=== PATIENT | male | born 1985 | race Caucasian/White ===

== ENCOUNTER 2016-09-09 15:32 | Emergency (ER) | payer SELFPAY ==
[2016-09-09] MEDS ORDERED: Sodium Chloride 0.9% 10 ML Syringe FLUSH PRN ×2 (15:56→16:55)
[2016-09-09] MEDS ORDERED: Sodium Chloride 0.9% 1,000 ML IV ONE (15:56)
[2016-09-09] MEDS ORDERED: Ondansetron 4 MG/2 ML SDV IVPUSH ONE ×2 (15:56→16:25)
[2016-09-09] MEDS ORDERED: HYDROmorphone 1 MG/ML Syringe IVPUSH ONE (15:56)
--- NOTE | 2016-09-09 16:06 | EDM.PDOC ---
ED HPI GENERAL MEDICAL PROBLEM - General Chief Complaint: Abdominal Pain Stated Complaint: ABDOMINAL PAIN Time Seen by Provider: 09/09/16 15:42 Source of Information: Reports: Patient History Limitations: Reports: No Limitations - History of Present Illness INITIAL COMMENTS - FREE TEXT/NARRATIVE: 31-year-old male presents for evaluation and treatment of right lower quadrant abdominal pain. Reports that the abdominal pain began about 10 minutes prior to arrival in ER. Describes the abdominal pain as a sharp, stabbing sensation. Reports associated symptoms of nausea. Patient reports he's never had anything like this before. He denies any fevers, vomiting, dysuria, hematuria, change in urine or color or any constipation. Reports his last bowel movement was today. Patient denies any surgeries to his abdomen. Of intake was about 45 minutes to an hour prior to arrival here. Patient had 2 sandwiches. Onset: Today, Sudden Duration: Minutes: (20) Location: Reports: Abdomen Lower Abdominal Pain Score (Numeric/FACES): 9 - Related Data Allergies Allergy/AdvReac Type Severity Reaction Status Date / Time No Known Allergies Allergy Verified 09/09/16 15:42 Home Meds: Home Meds . [No Known Home Meds] 09/09/16 [History] Past Medical History - Past Health History Medical/Surgical History: Denies Medical/Surgical History Social & Family History - Tobacco Use Smoking Status *Q: Never Smoker - Caffeine Use Caffeine Use: Reports: Energy Drinks - Recreational Drug Use Recreational Drug Use: No - Living Situation & Occupation Living situation: Reports: with Significant Other ED ROS GENERAL - Review of Systems Review Of Systems: See Below Constitutional: Denies: Fever GI/Abdominal: Reports: Abdominal Pain (rLQ), Nausea. Denies: Constipation, Vomiting : Reports: No Symptoms. Denies: Dysuria, Hematuria Musculoskeletal: Denies: Back Pain ED EXAM, GI/ABD - Physical Exam Exam: See Below Exam Limited By: No Limitations General Appearance: Alert, WD/WN, Moderate Distress, Obese Throat/Mouth: Normal Inspection, Normal Voice, No Airway Compromise Respiratory/Chest: No Respiratory Distress, Lungs Clear, Normal Breath Sounds Cardiovascular: Normal Peripheral Pulses, Regular Rate, Rhythm, No Murmur GI/Abdominal: Hypoactive Bowel Sounds, Tenderness (extremely tender to palpiation to the RLQ ), Guarding, Rebound, McBurney's Sign, Psoas Sign, Obturator Sign Neurological: Alert, Oriented, Normal Cognition Psychiatric: Normal Affect, Normal Mood Skin Exam: Warm, Dry, Normal Color Course - Vital Signs Last Recorded V/S: Last Vital Signs Temp 36.4 C 09/09/16 15:39 Pulse 70 09/09/16 16:35 Resp 16 09/09/16 16:35 BP 129/76 09/09/16 16:35 Pulse Ox 94 L 09/09/16 16:35 - Orders/Labs/Meds Orders: Active Orders 24 hr Category Date Time Status Peripheral IV Care [RC] . DIRECTED Care 09/09/16 15:56 Active Peripheral IV Insertion Adult [OM.PC] Routine Oth 09/09/16 15:56 Ordered Labs: Laboratory Tests 09/09/16 09/09/16 09/09/16 Range/Units 16:03 16:03 17:35 WBC 6.27 (4.23-9.07) K/mm3 RBC 5.08 (4.63-6.08) M/mm3 Hgb 15.4 (13.7-17.5) gm/L Hct 44.6 (40.1-51.0) % MCV 87.8 (79.0-92.2) fl MCH 30.3 (25.7-32.2) pg MCHC 34.5 (32.2-35.5) g/dl RDW Std Deviation 39.5 (35.1-43.9) fL Plt Count 260 (163-337) K/mm3 MPV 9.3 L (9.4-12.3) fl Neutrophils % (Manual) 70 H (40-60) % Band Neutrophils % 0 (0-10) % Lymphocytes % (Manual) 23 (20-40) % Atypical Lymphs % 0 % Monocytes % (Manual) 4 (2-10) % Eosinophils % (Manual) 2 (0.8-7.0) % Basophils % (Manual) 1 (0.2-1.2) Platelet Estimate Adequate Plt Morphology Comment Normal RBC Morph Comment Normal Sodium 142 (136-145) mEq/L Potassium 3.8 (3.5-5.1) mEq/L Chloride 106 (98-107) mEq/L Carbon Dioxide 24 (21-32) mEq/L Anion Gap 15.8 H (5-15) BUN 13 (7-18) mg/dL Creatinine 1.3 (0.7-1.3) mg/dL Est Cr Clr Drug Dosing 103.76 mL/min Estimated GFR (MDRD) > 60 (>60) mL/min BUN/Creatinine Ratio 10.0 L (14-18) Glucose 117 H (74-106) mg/dL Calcium 9.0 (8.5-10.1) mg/dL Total Bilirubin 1.8 H (0.2-1.0) mg/dL AST 27 (15-37) U/L ALT 56 (16-63) U/L Alkaline Phosphatase 95 (46-116) U/L C-Reactive Protein < 0.2 (<1.0) mg/dL Total Protein 7.9 (6.4-8.2) g/dl Albumin 3.8 (3.4-5.0) g/dl Globulin 4.1 gm/dL Albumin/Globulin Ratio 0.9 L (1-2) Urine Color Yellow (Yellow) Urine Appearance Clear (Clear) Urine pH 7.0 (5.0-8.0) Ur Specific Moody 1.015 (1.005-1.030) Urine Protein Negative (Negative) Urine Glucose (UA) Negative (Negative) Urine Ketones Negative (Negative) Urine Occult Blood Negative (Negative) Urine Nitrite Negative (Negative) Urine Bilirubin Negative (Negative) Urine Urobilinogen 0.2 (0.2-1.0) Ur Leukocyte Esterase Negative (Negative) Urine RBC Not seen (0-5) /hpf Urine WBC Not seen (0-5) /hpf Ur Epithelial Cells Not seen (0-5) /hpf Urine Bacteria Rare (FEW) /hpf Urine Mucus Not seen (FEW) /hpf Meds: Medications Discontinued Medications Generic Name Dose Route Start Last Admin Trade Name Freq PRN Reason Stop Dose Admin Diatrizoate Meglum/Diatrizoate Sod 90 ml 09/09/16 16:55 09/09/16 17:26 Gastrografin 37% PO 09/09/16 16:56 90 ml ONETIME ONE Administration Hydromorphone HCl 1 mg 09/09/16 15:56 09/09/16 16:07 Dilaudid IVPUSH 09/09/16 15:57 1 mg ONETIME ONE Administration Sodium Chloride 1,000 mls @ 999 mls/hr 09/09/16 15:56 09/09/16 16:06 Normal Saline IV 09/09/16 16:56 999 mls/hr ONETIME ONE Administration Iopamidol 125 ml 09/09/16 16:55 09/09/16 17:26 Isovue-300 (61%) IVPUSH 09/09/16 16:56 125 ml ONETIME ONE Administration Ketorolac Tromethamine 30 mg 09/09/16 19:36 09/09/16 20:19 Toradol IVPUSH 09/09/16 19:37 Not Given ONETIME ONE Ondansetron HCl 4 mg 09/09/16 15:56 09/09/16 16:04 Zofran IVPUSH 09/09/16 15:57 4 mg ONETIME ONE Administration Ondansetron HCl 4 mg 09/09/16 16:25 09/09/16 17:11 Zofran IVPUSH 09/09/16 16:26 Not Given ONETIME ONE Sodium Chloride 10 ml 09/09/16 15:56 09/09/16 16:03 Saline Flush FLUSH 10 ml ASDIRECTED PRN Administration Keep Vein Open Sodium Chloride 10 ml 09/09/16 16:55 09/09/16 17:26 Saline Flush FLUSH 10 ml ONETIME PRN Administration IV FLUSH - Radiology Interpretation Free Text/Narrative:: CT of the abdomen and pelvis impression per Dr. Garcias: 1. normal-appearing appendix 2. low density abnormality off the upper left kidney which does not have Hounsfield unit measurements of a simple cyst. This could possibly represent a slightly hemorrhagic cyst but mason lesion cannot be excluded at this time. Ultrasound could be considered to see if this helps to further differentiate. 3. No additional abnormality is identified on Ct study of the abdomen and pelvis. CT Results Date: 09/09/16 - Re-Assessments/Exams Free Text/Narrative Re-Assessment/Exam: 09/09/16 16:26 Patient reports pain is a 2/10 to nursing staff after IV Diaudid. Reports nausea is worsening. Will give an additional 4mg IV zofran. 09/09/16 16:54 Reportedly the nausea and pain has improved. Patient is having dizziness. Will hold 2nd zofran. 09/09/16 19:35 WBC is 6.27, hgb is 15.4 and plts are 260 Sodium is 142, potassium is 3.8 and chloride is 106. Anion gap is 15.8. Glucose is 117. CRP is normal at <0.2 UA is negative for blood, nitries, leuks, glucose and ketones Patient reports continued pain. I ordered toradol for pain. Reviewed labs and imaging with the patient. Suspect constipation as the cause of his discomfort. The patient has additional questions about sleep problems. I feel he likely has sleep apnea. I will have him follow-up with family med for an ER follow-up, sleep problems and left renal cyst. Discharge instructions as documented. 09/09/16 20:38 Nursing staff went to administer toradol. Patient then declined and went home. Departure - Departure Time of Disposition: 20:01 Disposition: Home, Self-Care 01 Condition: fair Clinical Impression: Kidney cysts, Constipation - Discharge Information Instructions: Constipation, Adult Referrals: PCP,Katrin [Primary Care Provider] - Adonis Alberts [Physician] - Forms: ED Department Discharge, Return to Work/School Form Additional Instructions: [id number] Tylenol or Motrin as needed for pain relief. Follow up with family medicine the end of this week or early next week. Recommendations included ultrasound of the cyst in your left kidney to further evaluate this. I also recommend that she followup regarding her sleep issues as your may have sleep apnea require further testing for this. Recommend subha ruvalcaba or Dr. fisher. Please call [phone] schedules one of them. Recommend drinking one 300ml bottle of mag citrate tomorrow morning over one hour. This is available OTC. This will help the bowel cleanout. I recommend MiraLax that is available [id number] daily or every other day for daily maintenance. make sure your are drinking plenty of fluids. Please return to the ER if your symptoms change or worsen. - My Orders Last 24 Hours: My Active Orders 09/09/16 15:56 Peripheral IV Care [RC] . DIRECTED Peripheral IV Insertion Adult [OM.PC] Routine - Assessment/Plan Last 24 Hours: My Active Orders 09/09/16 15:56 Peripheral IV Care [RC] . DIRECTED Peripheral IV Insertion Adult [OM.PC] Routine
[2016-09-09 16:39] VITALS: BP 129/76
[2016-09-09] MEDS ORDERED: Iopamidol 612 MG/ML 150 ML Bottle IVPUSH ONE (16:55)
[2016-09-09] MEDS ORDERED: Diatrizoate Meglumine/Diatrizoate Sodium 37% 120 ML Bottle PO ONE (16:55)
--- NOTE | 2016-09-09 18:09 | CT ---
CT abdomen and pelvis Technique: Multiple axial sections were obtained from above the dome of the diaphragm inferiorly through the pubic symphysis. Intravenous and oral contrast was utilized. Delayed images were also obtained through the bladder. Comparison: No previous abdominal imaging. Findings: Visualized lung bases shows nothing acute. Liver shows no focal parenchymal abnormality. Spleen appears within normal limits. Adrenal glands show no nodule. Gallbladder shows no calcified gallstones. Low-density lesion is noted within the upper left kidney measuring 3.4 cm in greatest dimension. This does not have Hounsfield unit measurements of a simple cyst. Kidneys otherwise appear within normal limits. Pancreas is unremarkable. Aorta shows no aneurysmal dilatation. No retroperitoneal adenopathy is seen. Appendix is visualized and appears normal. No pelvic mass or adenopathy is seen. Delayed images shows contrast within the bladder. Small normal-appearing inguinal lymph nodes are seen. No free fluid or inflammatory change is seen. Impression: 1. Normal-appearing appendix. 2. Low density abnormality off the upper left kidney which does not have Hounsfield unit measurements of a simple cyst. This could possibly represent a slightly hemorrhagic cyst but solid lesion cannot be excluded at this time. Ultrasound could be considered to see if this helps to further differentiate. 3. No additional abnormality is identified on CT study of the abdomen and pelvis. Diagnostic code #9
[2016-09-09] MEDS ORDERED: Ketorolac 30 MG/ML SDV IVPUSH ONE (19:36)
== END 2016-09-09 20:12 | disposition home or self-care (01) ==
LOC: JD.ED 15:32
DX: N28.1 Cyst of kidney, acquired (principal); K59.00 Constipation, unspecified; R11.0 Nausea
CPT/HCPCS: 36415; 74177; 80053; 81001; 85025; 86140; 96361; 96374; 96375; 99284; J1170; J2405; J7040; J7050; Q9963; Q9967

== ENCOUNTER 2016-10-26 05:43 | Emergency (ER) | payer SELFPAY ==
[2016-10-26] MEDS ORDERED: Sodium Chloride 0.9% 1,000 ML IV ONE (06:33)
[2016-10-26] MEDS ORDERED: Benztropine 1 MG Tab PO STA (06:33)
[2016-10-26] MEDS ORDERED: Ondansetron 4 MG/2 ML SDV IVPUSH ONE (06:33)
[2016-10-26] MEDS ORDERED: Haloperidol Lactate 5 MG/ML SDV IM ONE (06:33)
--- NOTE | 2016-10-26 06:36 | EDM.PDOC ---
ED HPI GENERAL MEDICAL PROBLEM - General Chief Complaint: Cardiovascular Problem Stated Complaint: VOMIOTING RAPID HEART BEAT Time Seen by Provider: 10/26/16 05:53 Source of Information: Reports: Patient, RN Notes Reviewed History Limitations: Reports: No Limitations - History of Present Illness INITIAL COMMENTS - FREE TEXT/NARRATIVE: The patient states that he was woken up this morning at 05:22 with nausea and a severe headache. He vomited, then felt lightheaded, his heart pounding, and dyspneic. The symptoms have been waxing and waning since. He states that he has photophobia, but not phonophobia. He sees some wavy lines , but no flashing lights or blurry vision. No neurologic symptoms, such as tingling, numbness, or weakness. The patient states that he had a similar episode 2 months ago - medical records indicate that the patient was seen in this ED 02/10/2016 with dizziness, but no headache. He was felt to be dehydrated from inadequate oral intake. The patient states that he has never previously had an imaging study of the head , however, medical records indicate that he had a CT scan of the head on his 02/10/2016 visit, which was normal. The patient does not of a PCP. Headache Pain Score (Numeric/FACES): 8 - Related Data Allergies Allergy/AdvReac Type Severity Reaction Status Date / Time No Known Allergies Allergy Verified 10/26/16 05:54 Home Meds: Home Meds Rizatriptan Benzoate [Rizatriptan] 1 tab PO Q2H PRN #3 tab.rapdis 10/26/16 [Rx] Past Medical History - Past Health History Medical/Surgical History: Denies Medical/Surgical History Social & Family History - Family History Family Medical History: Noncontributory - Tobacco Use Smoking Status *Q: Never Smoker - Caffeine Use Caffeine Use: Reports: Energy Drinks - Alcohol Use Alcohol Use History: Yes Alcohol Use Frequency: Rarely - Recreational Drug Use Recreational Drug Use: No - Living Situation & Occupation Living situation: Reports: Single, Alone Occupation: Employed ([employer]) ED ROS GENERAL - Review of Systems Review Of Systems: See Below Constitutional: Reports: No Symptoms HEENT: Reports: No Symptoms Respiratory: Reports: No Symptoms Cardiovascular: Reports: No Symptoms Endocrine: Reports: No Symptoms GI/Abdominal: Reports: No Symptoms : Reports: No Symptoms Musculoskeletal: Reports: No Symptoms Skin: Reports: No Symptoms Neurological: Reports: No Symptoms Psychiatric: Reports: No Symptoms Hematologic/Lymphatic: Reports: No Symptoms Immunologic: Reports: No Symptoms ED EXAM, GENERAL - Physical Exam Exam: See Below Exam Limited By: No Limitations General Appearance: Alert, WD/WN, No Apparent Distress Eye Exam: Bilateral Eye: Normal Inspection Ears: Normal External Exam, Normal Canal, Hearing Grossly Normal, Normal TMs Nose: Normal Inspection, Normal Mucosa, No Blood Throat/Mouth: Normal Inspection, Normal Lips, Normal Teeth, Normal Gums, Normal Oropharynx, Normal Voice, No Airway Compromise Head: Atraumatic, Normocephalic Neck: Normal Inspection, Supple, Non-Tender, Full Range of Motion Respiratory/Chest: No Respiratory Distress, Lungs Clear, Normal Breath Sounds, No Accessory Muscle Use Cardiovascular: Normal Peripheral Pulses, Regular Rate, Rhythm, No Gallop, No JVD, No Murmur, No Rub Peripheral Pulses: 4+: Radial (L), Radial (R) GI/Abdominal: Normal Bowel Sounds, Soft, Non-Tender, No Organomegaly, No Distention, No Abnormal Bruit, No Mass (Male) Exam: Deferred Rectal (Males) Exam: Deferred Back Exam: Normal Inspection, Full Range of Motion, NT Extremities: Normal Inspection, Normal Range of Motion, No Pedal Edema, Normal Capillary Refill Neurological: Alert, Oriented, CN II-XII Intact, Normal Cognition, No Motor/ Sensory Deficits Psychiatric: Normal Affect Skin Exam: Warm, Dry, Intact, Normal Color, No Rash Lymphatic: No Adenopathy Course - Vital Signs Last Recorded V/S: Last Vital Signs Temp 36.7 C 10/26/16 05:47 Pulse 125 H 10/26/16 05:47 Resp 14 10/26/16 05:47 BP Pulse Ox 97 10/26/16 05:47 - Orders/Labs/Meds Orders: Active Orders 24 hr Category Date Time Status Head wo Cont [CT] Stat Exams 10/26/16 06:32 Stop Req Sodium Chloride 0.9% [Normal Saline] 1,000 ml Med 10/26/16 06:33 Active IV ONETIME Medication Orders Sodium Chloride (Normal Saline) 1,000 mls @ 999 mls/hr IV ONETIME ONE Stop: 10/26/16 07:33 Last Admin: 10/26/16 06:52 Dose: 999 mls/hr Meds: Medications Generic Name Dose Route Start Last Admin Trade Name Freq PRN Reason Stop Dose Admin Sodium Chloride 1,000 mls @ 999 mls/hr 10/26/16 06:33 10/26/16 06:52 Normal Saline IV 10/26/16 07:33 999 mls/hr ONETIME ONE Administration Discontinued Medications Generic Name Dose Route Start Last Admin Trade Name Freq PRN Reason Stop Dose Admin Benztropine Mesylate 1 mg 10/26/16 06:33 10/26/16 06:58 Cogentin PO 10/26/16 06:34 1 mg ONETIME STA Administration Haloperidol Lactate 5 mg 10/26/16 06:33 10/26/16 06:54 Haldol IM 10/26/16 06:34 5 mg ONETIME ONE Administration Ondansetron HCl 4 mg 10/26/16 06:33 10/26/16 06:52 Zofran IVPUSH 10/26/16 06:34 4 mg ONETIME ONE Administration - Re-Assessments/Exams Free Text/Narrative Re-Assessment/Exam: 10/26/16 06:40 Notified by the nurse that the patient is declining the medicines I have ordered. 10/26/16 06:45 I talked to the patient, and he is agreeable to receive the Haldol, Cogentin, Zofran, and IV fluid. 10/26/16 07:24 The patient states that his headache and nausea have completely resolved, although he feels that the majority of his improvement came when the lights were turned off, so it is hard to say if his improvement is due to the Haldol or not. The fact that he woke with a headache and nausea is very compelling for a migraine. I will e-prescribe Maxalt, and refer him to the clinic. Departure - Departure Time of Disposition: 07:25 Disposition: Home, Self-Care 01 Condition: Good Clinical Impression: Migraine headache Referrals: PCP,Katrin [Primary Care Provider] - Adonis Alberts [Physician] - Forms: ED Department Discharge Additional Instructions: You were seen in the emergency room for a severe headache, nausea, vomiting, and lightheadedness. Your symptoms were MOST LIKELY due to a migraine. Get plenty of rest and stay adequately hydrated. You have been prescribed the anti-migraine medicine Maxalt (rizatriptan). Dissolve 1 tablet in your mouth at the earliest sign of a migraine. You may repeat after 2 hours, to a maximum of 30 mg within a 24-hour period. Follow-up with Dr. Alberts in the clinic as needed. If any other problems, please do not hesitate to return to the ER. - My Orders Last 24 Hours: My Active Orders 10/26/16 06:32 Head wo Cont [CT] Stat 10/26/16 06:33 Sodium Chloride 0.9% [Normal Saline] 1,000 ml IV ONETIME - Assessment/Plan Last 24 Hours: My Active Orders 10/26/16 06:32 Head wo Cont [CT] Stat 10/26/16 06:33 Sodium Chloride 0.9% [Normal Saline] 1,000 ml IV ONETIME
== END 2016-10-26 07:34 | disposition home or self-care (01) ==
LOC: JD.ED 05:43
DX: G43.909 Migraine, unspecified, not intractable, without status migrainosus (principal)
CPT/HCPCS: 96361; 96372; 96374; 99284; A9270; J1630; J2405; J7040

== ENCOUNTER 2016-12-01 14:32 | Emergency (ER) | payer BC ==
[2016-12-01 14:57] VITALS: BP 130/85
--- NOTE | 2016-12-01 14:58 | EDM.PDOC ---
ED HPI GENERAL MEDICAL PROBLEM - General Chief Complaint: ENT Problem Stated Complaint: FB IN THROAT? SPITTING UP BLOOD Time Seen by Provider: 12/01/16 14:58 - History of Present Illness INITIAL COMMENTS - FREE TEXT/NARRATIVE: 31-year-old male presents emergency room with a sensation like something is caught in his throat. This is been progressively getting worse over the last week or so the patient cannot recall a choking episode or eating anything with the bone in it or anything getting stuck in his throat he just doesn't know what caused this. The patient is not having any difficulty with breathing he is not having difficulty swallowing solids or liquids it feels that he has like a rock in the back of his throat. He denies fevers or chills. Throat Pain Score (Numeric/FACES): 5 - Related Data Allergies Allergy/AdvReac Type Severity Reaction Status Date / Time No Known Allergies Allergy Verified 10/26/16 05:54 Home Meds: Home Meds Rizatriptan Benzoate [Rizatriptan] 1 tab PO Q2H PRN #3 tab.rapdis 10/26/16 [Rx] Past Medical History - Past Health History Medical/Surgical History: Denies Medical/Surgical History Social & Family History - Family History Family Medical History: Noncontributory - Tobacco Use Smoking Status *Q: Never Smoker - Caffeine Use Caffeine Use: Reports: Energy Drinks - Recreational Drug Use Recreational Drug Use: No - Living Situation & Occupation Living situation: Reports: Single, Alone Occupation: Employed ([employer]) ED ROS GENERAL - Review of Systems Review Of Systems: See Below Constitutional: Reports: No Symptoms. Denies: Fever, Chills HEENT: Denies: Dental Pain, Ear Pain, Eye Pain, Rhinitis, Sinus Problem Respiratory: Reports: No Symptoms Cardiovascular: Reports: No Symptoms GI/Abdominal: Reports: No Symptoms : Reports: No Symptoms ED EXAM, GENERAL - Physical Exam Exam: See Below Exam Limited By: No Limitations General Appearance: Alert, No Apparent Distress Eye Exam: Bilateral Eye: Normal Inspection Ears: Normal External Exam, Normal Canal, Hearing Grossly Normal, Normal TMs Nose: Normal Inspection, Normal Mucosa, No Blood Throat/Mouth: Normal Inspection, Normal Lips, Normal Teeth, Normal Gums, Normal Oropharynx, Normal Voice, No Airway Compromise Head: Atraumatic, Normocephalic Neck: Normal Inspection, Supple, Non-Tender, Full Range of Motion, Other (He describes the pain and points to it right behind the thyroid cartilage slightly superior to this) Respiratory/Chest: No Respiratory Distress, Lungs Clear, Normal Breath Sounds Cardiovascular: Regular Rate, Rhythm, No Edema, No Murmur Course - Vital Signs Last Recorded V/S: Last Vital Signs Temp 36.7 C 12/01/16 14:54 Pulse 72 12/01/16 14:54 Resp 18 12/01/16 14:54 BP 130/85 12/01/16 14:54 Pulse Ox 96 12/01/16 14:54 - Orders/Labs/Meds Orders: Active Orders 24 hr Category Date Time Status CULTURE STREP A CONFIRMATION [RM] Stat Lab 12/01/16 17:00 Results STREP SCRN A RAPID W CULT CONF [RM] Stat Lab 12/01/16 17:00 Results - Re-Assessments/Exams Free Text/Narrative Re-Assessment/Exam: 12/01/16 16:[address] Clifton who recommends patient follow-up with ENT I will check her throat culture I've explained everything to the patient thus far awaiting rapid strep results. 12/01/16 18:02 Rapid strep negative culture results pending Departure - Departure Time of Disposition: 18:02 Disposition: Home, Self-Care 01 Clinical Impression: Throat irritation - Discharge Information Referrals: PCP,None [Primary Care Provider] - Forms: ED Department Discharge Additional Instructions: Return to the emergency room with any questions or problems. Follow up with an earth science faculty member in [place] to get this evaluated. It is reasonable to try famotidine, or Pepcid 20 mg twice daily. - My Orders Last 24 Hours: My Active Orders 12/01/16 17:00 CULTURE STREP A CONFIRMATION [RM] Stat STREP SCRN A RAPID W CULT CONF [RM] Stat - Assessment/Plan Last 24 Hours: My Active Orders 12/01/16 17:00 CULTURE STREP A CONFIRMATION [RM] Stat STREP SCRN A RAPID W CULT CONF [RM] Stat
== END 2016-12-01 18:16 | disposition home or self-care (01) ==
LOC: JD.ED 14:32
DX: J39.2 Other diseases of pharynx (principal)
CPT/HCPCS: 87081; 87430; 99282; 99283

== ENCOUNTER 2016-12-18 21:50 | Emergency (ER) | payer BC ==
[2016-12-18 22:03] VITALS: BP 136/96
--- NOTE | 2016-12-18 22:33 | EDM.PDOC ---
ED HPI GENERAL MEDICAL PROBLEM - General Chief Complaint: Respiratory Problem Stated Complaint: SOB Time Seen by Provider: 12/18/16 21:57 Source of Information: Reports: Patient, RN Notes Reviewed History Limitations: Reports: No Limitations - History of Present Illness INITIAL COMMENTS - FREE TEXT/NARRATIVE: The patient states that he was at work around 21:55 tonight, when he smelled jalapeno from someone eating nearby. He states that he developed sudden onset dry cough, dyspnea, throat tightness, and dizziness. He states that he came to the ED immediately, and that his symptoms have persisted. No prior similar symptoms. It is noted that the patient's oxygen saturation is 98% on room air. The patient's PCP is Dr. Viera. - Related Data Allergies Allergy/AdvReac Type Severity Reaction Status Date / Time No Known Allergies Allergy Verified 12/18/16 21:55 Home Meds: Home Meds . [No Known Home Meds] 12/18/16 [History] Past Medical History HEENT History: Reports: Impaired Vision Other HEENT History: wears glasses Psychiatric History: Reports: Anxiety Endocrine/Metabolic History: Reports: Obesity/BMI 30+ Social & Family History - Family History Family Medical History: Noncontributory - Tobacco Use Smoking Status *Q: Never Smoker Second Hand Smoke Exposure: Yes - Caffeine Use Caffeine Use: Reports: None - Alcohol Use Alcohol Use History: Yes Alcohol Use Frequency: Socially - Recreational Drug Use Recreational Drug Use: No - Living Situation & Occupation Living situation: Reports: Single, Alone Occupation: Employed ([employer]) ED ROS GENERAL - Review of Systems Review Of Systems: See Below Constitutional: Reports: No Symptoms HEENT: Reports: No Symptoms Respiratory: Reports: No Symptoms Cardiovascular: Reports: No Symptoms Endocrine: Reports: No Symptoms GI/Abdominal: Reports: No Symptoms : Reports: No Symptoms Musculoskeletal: Reports: No Symptoms Skin: Reports: No Symptoms Neurological: Reports: No Symptoms Psychiatric: Reports: No Symptoms Hematologic/Lymphatic: Reports: No Symptoms Immunologic: Reports: No Symptoms ED EXAM, GENERAL - Physical Exam Exam: See Below Exam Limited By: No Limitations General Appearance: Alert, WD/WN, Anxious Eye Exam: Bilateral Eye: Normal Inspection Ears: Normal External Exam, Normal Canal, Hearing Grossly Normal, Normal TMs Nose: Normal Inspection, Normal Mucosa, No Blood Throat/Mouth: Normal Inspection, Normal Lips, Normal Teeth, Normal Gums, Normal Oropharynx (no oropharyngeal or uvular swelling), Normal Voice, No Airway Compromise Head: Atraumatic, Normocephalic Neck: Normal Inspection, Supple, Non-Tender, Full Range of Motion. No: Lymphadenopathy (L), Lymphadenopathy (R) Respiratory/Chest: No Respiratory Distress, Lungs Clear, Normal Breath Sounds, No Accessory Muscle Use. No: Crackles, Rhonchi, Wheezing, Stridor, Prolonged Expiration Cardiovascular: Normal Peripheral Pulses, Regular Rate, Rhythm, No Gallop, No JVD, No Murmur, No Rub Peripheral Pulses: 4+: Radial (L), Radial (R) GI/Abdominal: Normal Bowel Sounds, Soft, Non-Tender, No Organomegaly, No Distention, No Abnormal Bruit, No Mass, Other (Obese) (Male) Exam: Deferred Rectal (Males) Exam: Deferred Back Exam: Normal Inspection, Full Range of Motion, NT Extremities: Normal Inspection, Normal Range of Motion, No Pedal Edema, Normal Capillary Refill Neurological: Alert, Oriented, Normal Cognition, No Motor/Sensory Deficits Psychiatric: Normal Affect, Anxious Skin Exam: Warm, Dry, Intact, Normal Color, No Rash Lymphatic: No Adenopathy EKG INTERPRETATION EKG Date: 12/18/16 Time: 22:26 Rhythm: NSR Rate (Beats/Min): 87 [place]: Normal P-Wave: Present QRS: Normal ST-T: Normal QT: Normal Comparison: No Change (02/10/2016) Course - Vital Signs Last Recorded V/S: Last Vital Signs Temp 36.6 C 12/18/16 21:56 Pulse 98 12/18/16 21:56 Resp 23 H 12/18/16 21:56 BP 136/96 H 12/18/16 21:56 Pulse Ox 100 12/18/16 21:56 Orthostatic Blood Pressure [ 135/97 Standing] Orthostatic Blood Pressure [ 125/89 Supine] - Orders/Labs/Meds Orders: Active Orders 24 hr Category Date Time Status EKG Documentation Completion [RC] STAT Care 12/18/16 22:11 Active Orthostatic Vital Signs [RC] STAT Care 12/18/16 22:11 Active Chest 2V [CR] Stat Exams 12/18/16 22:11 Taken BLOOD GAS ARTERIAL [BG] Stat Lab 12/18/16 23:21 Stop Req Labs: Laboratory Tests 12/18/16 12/18/16 12/18/16 Range/Units 22:00 22:00 22:00 WBC 8.37 (4.23-9.07) K/mm3 RBC 5.07 (4.63-6.08) M/mm3 Hgb 15.6 (13.7-17.5) gm/L Hct 44.8 (40.1-51.0) % MCV 88.4 (79.0-92.2) fl MCH 30.8 (25.7-32.2) pg MCHC 34.8 (32.2-35.5) g/dl RDW Std Deviation 40.1 (35.1-43.9) fL Plt Count 269 (163-337) K/mm3 MPV 9.6 (9.4-12.3) fl Neutrophils % (Manual) 59 (40-60) % Band Neutrophils % 0 (0-10) % Lymphocytes % (Manual) 31 (20-40) % Atypical Lymphs % 0 % Monocytes % (Manual) 8 (2-10) % Eosinophils % (Manual) 2 (0.8-7.0) % Basophils % (Manual) 0 L (0.2-1.2) Platelet Estimate Adequate RBC Morph Comment Normal PT 9.7 (8.0-13.0) SECONDS INR 0.90 APTT 26 (22-36) SECONDS D-Dimer, Quantitative 0.43 (0.19-0.59) mg/L Puncture Site ABG pH (7.35-7.45) ABG pCO2 (35.0-45.0) mmHg ABG pO2 (80.0-100.0) mmHg ABG HCO3 (22.0-26.0) meq/L ABG O2 Saturation (96.0-97.0) % ABG Base Excess (-2-2.0) A-a Gradient mmHg O2 Delivery Device Oxygen Flow Rate FiO2 (21.00-100.00) % Sodium 140 (136-145) mEq/L Potassium 3.9 (3.5-5.1) mEq/L Chloride 104 (98-107) mEq/L Carbon Dioxide 27 (21-32) mEq/L Anion Gap 12.9 (5-15) BUN 12 (7-18) mg/dL Creatinine 1.4 H (0.7-1.3) mg/dL Est Cr Clr Drug Dosing 96.35 mL/min Estimated GFR (MDRD) 59 (>60) mL/min BUN/Creatinine Ratio 8.6 L (14-18) Glucose 95 (74-106) mg/dL Calcium 9.3 (8.5-10.1) mg/dL Magnesium 2.0 (1.8-2.4) mg/dl Total Bilirubin 0.9 (0.2-1.0) mg/dL AST 33 (15-37) U/L ALT 58 (16-63) U/L Alkaline Phosphatase 109 (46-116) U/L Troponin I < 0.017 (0.00-0.056) ng/mL NT-Pro-B Natriuret Pep 15 (0-125) pg/mL Total Protein 8.3 H (6.4-8.2) g/dl Albumin 4.1 (3.4-5.0) g/dl Globulin 4.2 gm/dL Albumin/Globulin Ratio 1.0 (1-2) TSH 3rd Generation 0.680 (0.358-3.74) uIU/mL Urine Color (Yellow) Urine Appearance (Clear) Urine pH (5.0-8.0) Ur Specific [place] (1.005-1.030) Urine Protein (Negative) Urine Glucose (UA) (Negative) Urine Ketones (Negative) Urine Occult Blood (Negative) Urine Nitrite (Negative) Urine Bilirubin (Negative) Urine Urobilinogen (0.2-1.0) Ur Leukocyte Esterase (Negative) Urine RBC (0-5) /hpf Urine WBC (0-5) /hpf Ur Epithelial Cells (0-5) /hpf Urine Bacteria (FEW) /hpf Urine Mucus (FEW) /hpf 12/18/16 12/18/16 Range/Units 22:11 22:48 WBC (4.23-9.07) K/mm3 RBC (4.63-6.08) M/mm3 Hgb (13.7-17.5) gm/L Hct (40.1-51.0) % MCV (79.0-92.2) fl MCH (25.7-32.2) pg MCHC (32.2-35.5) g/dl RDW Std Deviation (35.1-43.9) fL Plt Count (163-337) K/mm3 MPV (9.4-12.3) fl Neutrophils % (Manual) (40-60) % Band Neutrophils % (0-10) % Lymphocytes % (Manual) (20-40) % Atypical Lymphs % % Monocytes % (Manual) (2-10) % Eosinophils % (Manual) (0.8-7.0) % Basophils % (Manual) (0.2-1.2) Platelet Estimate RBC Morph Comment PT (8.0-13.0) SECONDS INR APTT (22-36) SECONDS D-Dimer, Quantitative (0.19-0.59) mg/L Puncture Site Rt radial ABG pH 7.42 (7.35-7.45) ABG pCO2 38.1 (35.0-45.0) mmHg ABG pO2 37.0 L* (80.0-100.0) mmHg ABG HCO3 24.1 (22.0-26.0) meq/L ABG O2 Saturation 67.3 L (96.0-97.0) % ABG Base Excess 0.3 (-2-2.0) A-a Gradient 50 mmHg O2 Delivery Device Room air Oxygen Flow Rate 0.0 FiO2 0.00 L (21.00-100.00) % Sodium (136-145) mEq/L Potassium (3.5-5.1) mEq/L Chloride (98-107) mEq/L Carbon Dioxide (21-32) mEq/L Anion Gap (5-15) BUN (7-18) mg/dL Creatinine (0.7-1.3) mg/dL Est Cr Clr Drug Dosing mL/min Estimated GFR (MDRD) (>60) mL/min BUN/Creatinine Ratio (14-18) Glucose (74-106) mg/dL Calcium (8.5-10.1) mg/dL Magnesium (1.8-2.4) mg/dl Total Bilirubin (0.2-1.0) mg/dL AST (15-37) U/L ALT (16-63) U/L Alkaline Phosphatase (46-116) U/L Troponin I (0.00-0.056) ng/mL NT-Pro-B Natriuret Pep (0-125) pg/mL Total Protein (6.4-8.2) g/dl Albumin (3.4-5.0) g/dl Globulin gm/dL Albumin/Globulin Ratio (1-2) TSH 3rd Generation (0.358-3.74) uIU/mL Urine Color Yellow (Yellow) Urine Appearance Clear (Clear) Urine pH 7.0 (5.0-8.0) Ur Specific [place] 1.025 (1.005-1.030) Urine Protein 1+ H (Negative) Urine Glucose (UA) Negative (Negative) Urine Ketones Trace H (Negative) Urine Occult Blood Negative (Negative) Urine Nitrite Negative (Negative) Urine Bilirubin Negative (Negative) Urine Urobilinogen 1.0 (0.2-1.0) Ur Leukocyte Esterase Negative (Negative) Urine RBC 0-5 (0-5) /hpf Urine WBC 0-5 (0-5) /hpf Ur Epithelial Cells 0-5 (0-5) /hpf Urine Bacteria Rare (FEW) /hpf Urine Mucus Few (FEW) /hpf - Re-Assessments/Exams Free Text/Narrative Re-Assessment/Exam: 12/18/16 22:53 Two-view chest radiograph appears to be grossly normal. Cardiac silhouette is within normal limits. No pulmonary vascular congestion. No pleural effusions. No focal infiltrate. No pneumothorax. Formal read per the Radiologist pending. 12/18/16 22:57 The patient is not orthostatic. 12/18/16 23:03 The ABG appears to be a mixed venous sample. The respiratory therapist is going to attempt a second ABG. 12/18/16 23:24 The patient states that he is feeling much better now. I have canceled the second ABG. 12/18/16 23:29 Test results discussed with the patient. Currently, the patient's symptoms are consistent with hyperventilation syndrome, although, because the ABG was a venous sample, I cannot prove that he was hyperventilating. Medical causes for hyperventilation, including metabolic acidosis, hypocalcemia, hypoglycemia, hyperthyroidism, liver failure, severe anemia, sepsis, acute coronary event, pneumothorax, pneumonia, dysrhythmia, PE, and CHF have been ruled out. By a process of elimination, the patient was likely suffering from a panic attack. The patient acknowledges that he has a six-year history of anxiety, untreated. I am recommending that if his symptoms recur, that he follow-up with his PCP, Dr. Viera, to discuss long-term treatment options. Departure - Departure Time of Disposition: 23:31 Disposition: Home, Self-Care 01 Condition: Good Clinical Impression: Hyperventilation syndrome, Panic attack - Discharge Information Referrals: Adal Barragan MD [Primary Care Provider] - Forms: ED Department Discharge Additional Instructions: You were seen in the emergency room for sudden onset symptoms of cough, shortness of breath, throat tightness, and dizziness. Workup in the ER included blood work, an ABG, a chest x-ray, an ECG, and positional blood pressure checks. Your entire workup was normal. Clinically, you were suffering from a condition known as hyperventilation syndrome. Hyperventilation syndrome is usually caused by anxiety, but there are also medical problems that can cause hyperventilation, as well. Metabolic acidosis, hypocalcemia, hypoglycemia, hyperthyroidism, liver failure, severe anemia, sepsis, acute coronary event, pneumothorax, pneumonia, dysrhythmia, PE, and CHF have all been ruled out in your case. If your symptoms recur, we recommend you follow-up with your PCP, Dr. Viera , to discuss long-term treatment options for anxiety. If any other problems, please do not hesitate to return to the ER. - My Orders Last 24 Hours: My Active Orders 12/18/16 22:11 EKG Documentation Completion [RC] STAT Orthostatic Vital Signs [RC] STAT Chest 2V [CR] Stat 12/18/16 23:21 BLOOD GAS ARTERIAL [BG] Stat - Assessment/Plan Last 24 Hours: My Active Orders 12/18/16 22:11 EKG Documentation Completion [RC] STAT Orthostatic Vital Signs [RC] STAT Chest 2V [CR] Stat 12/18/16 23:21 BLOOD GAS ARTERIAL [BG] Stat
--- NOTE | 2016-12-20 10:07 | CR ---
Chest: Two views of the chest were obtained. Comparison: No prior study. Heart size and mediastinum are within normal limits. Lungs are clear. Bony structures are unremarkable for the patient's age. Impression: 1. Nothing acute is identified on two-view chest x-ray. Diagnostic code #1
== END 2016-12-18 23:40 | disposition home or self-care (01) ==
LOC: JD.ED 21:50
DX: F45.8 Other somatoform disorders (principal); F41.0 Panic disorder [episodic paroxysmal anxiety]; Z68.37 Body mass index [BMI] 37.0-37.9, adult
CPT/HCPCS: 36415; 36600; 71020; 71020-26; 80053; 81001; 82803; 83735; 83880; 84443; 84484; 85025; 85379; 85610; 85730; 93005; 99284; 99285-25

== ENCOUNTER 2019-01-15 08:11 | Emergency (ER) | payer SELFPAY ==
[2019-01-15 08:38] VITALS: BP 132/91; PULSE 78
[2019-01-15] MEDS ORDERED: Ondansetron 4 MG/2 ML SDV IVPUSH ONE (08:54)
[2019-01-15] MEDS ORDERED: HYDROmorphone 1 MG/ML Syringe IVPUSH ONE (08:54)
[2019-01-15] MEDS ORDERED: Sodium Chloride 0.9% 10 ML Syringe FLUSH PRN (08:55)
--- NOTE | 2019-01-15 09:14 | EDM.PDOC ---
ED HPI GENERAL MEDICAL PROBLEM - General Chief Complaint: Flank Pain Stated Complaint: L SIDE LOWER ABD PAIN Time Seen by Provider: 01/15/19 08:42 Source of Information: Reports: Patient, RN Notes Reviewed - History of Present Illness INITIAL COMMENTS - FREE TEXT/NARRATIVE: 33-year-old male comes in with left flank pain. He had sudden onset of this about 45 minutes ago. It does radiate toward the left groin. It does not go down into the scrotum. He is not aware of any type of injury. Having back pain 2 days ago. No voiding symptomatology. No fever or chills. Has not been constipated and there has been no diarrhea. The pain does not go to the right abdomen. Left Lower Abdomen Pain Score (Numeric/FACES): 8 - Related Data Allergies Allergy/AdvReac Type Severity Reaction Status Date / Time No Known Allergies Allergy Verified 01/15/19 08:38 Home Meds: Home Meds . [No Known Home Meds] 12/18/16 [History] Past Medical History - Past Health History Medical/Surgical History: Denies Medical/Surgical History HEENT History: Reports: Impaired Vision Other HEENT History: wears glasses Psychiatric History: Reports: Anxiety Endocrine/Metabolic History: Reports: Obesity/BMI 30+ Social & Family History - Family History Family Medical History: Noncontributory - Tobacco Use Smoking Status *Q: Never Smoker - Caffeine Use Caffeine Use: Reports: Tea - Recreational Drug Use Recreational Drug Use: No - Living Situation & Occupation Living situation: Reports: Single, Alone Occupation: Employed ([employer]) ED ROS GENERAL - Review of Systems Review Of Systems: See Below Constitutional: Denies: Fever, Chills, Diaphoresis HEENT: Reports: No Symptoms Respiratory: Denies: Shortness of Breath Cardiovascular: Denies: Chest Pain GI/Abdominal: Reports: Abdominal Pain (L flank) : Denies: Dysuria, Frequency, Hematuria Musculoskeletal: Reports: Back Pain (L back) Skin: Reports: No Symptoms Neurological: Reports: No Symptoms ED EXAM, RENAL/ - Physical Exam Exam: See Below General Appearance: Alert, Moderate Distress Eye Exam: Bilateral Eye: PERRL Throat/Mouth: Normal Inspection Head: Atraumatic Neck: Supple Respiratory/Chest: No Respiratory Distress, Lungs Clear, Normal Breath Sounds Cardiovascular: Regular Rate, Rhythm GI/Abdominal: Soft, Non-Tender Back Exam: Paraspinal Tenderness. No: CVA Tenderness (L), CVA Tenderness (R) Extremities: Normal Inspection, Normal Range of Motion Neurological: Alert, Oriented, No Motor/Sensory Deficits Skin Exam: Warm, Dry, Normal Color, No Rash Course - Vital Signs Last Recorded V/S: Last Vital Signs Temp 97.4 F 01/15/19 08:35 Pulse 78 01/15/19 08:35 Resp 20 01/15/19 08:35 BP 132/91 H 01/15/19 08:35 Pulse Ox 95 01/15/19 08:35 - Orders/Labs/Meds Labs: Laboratory Tests 01/15/19 Range/Units 10:11 Urine Color Yellow (Yellow) Urine Appearance Clear (Clear) Urine pH 5.5 (5.0-8.0) Ur Specific [place] > or = 1.030 (1.005-1.030) Urine Protein Negative (Negative) Urine Glucose (UA) Negative (Negative) Urine Ketones Negative (Negative) Urine Occult Blood Negative (Negative) Urine Nitrite Negative (Negative) Urine Bilirubin Negative (Negative) Urine Urobilinogen 0.2 (0.2-1.0) Ur Leukocyte Esterase Negative (Negative) Urine RBC 0-5 (0-5) /hpf Urine WBC 0-5 (0-5) /hpf Ur Epithelial Cells 0-5 (0-5) /hpf Urine Bacteria Few (FEW) /hpf Urine Mucus Few (FEW) /hpf Meds: Medications Discontinued Medications Generic Name Dose Route Start Last Admin Trade Name Freq PRN Reason Stop Dose Admin Hydromorphone HCl 1 mg 01/15/19 08:54 01/15/19 09:04 Dilaudid IVPUSH 01/15/19 08:55 1 mg ONETIME ONE Administration Ondansetron HCl 4 mg 01/15/19 08:54 01/15/19 09:06 Zofran IVPUSH 01/15/19 08:55 4 mg ONETIME ONE Administration Sodium Chloride 10 ml 01/15/19 08:55 01/15/19 09:05 Saline Flush FLUSH 10 ml ASDIRECTED PRN Administration Keep Vein Open - Re-Assessments/Exams Free Text/Narrative Re-Assessment/Exam: 01/15/19 11:09 CT of abdomen pelvis without contrast negative for kidney stone, ureteral dilatation or other apparent acute pathology. See radiology report for details, UA also neg. for infection or other acute findings. It is possible he may have passed a stone but not super likely. He is wondering about work this weekend, discharge instructions as documented. Departure - Departure Time of Disposition: 11:11 Disposition: Home, Self-Care 01 Condition: Fair Clinical Impression: Left groin pain - Discharge Information Referrals: Adal Barragan MD [Primary Care Provider] - Forms: ED Department Discharge, ED Return to Work/School Form Additional Instructions: Advil or ibuprofen 600 mg 3 times daily, you may take Tylenol in addition up to 3 times daily if needed. Alternate ice and heat as needed. Follow-up with your regular medical provider if symptoms not resolving as expected over the next 2- 3 days. Reurn to ED as needed if symptoms worsening in any way.
--- NOTE | 2019-01-15 10:26 | CT ---
CT abdomen and pelvis Technique: Multiple axial sections were obtained from above the dome of the diaphragm inferiorly through the pubic symphysis. Intravenous and oral contrast not utilized. Study has been performed as a ureteral stone protocol. Comparison: Previous CT abdomen and pelvis exam of 09/09/16. Findings: Kidneys show no abnormal calcifications. Cyst is noted off the upper pole of the left kidney measuring 3.7 cm. This measured 3.3 cm on prior exam. No ureteral dilatation or ureteral calculus is seen. Visualized lung bases show nothing acute. Liver shows diffuse fatty infiltration. Spleen appears within normal limits. Adrenal glands show no nodule. Pancreas is within normal limits. Aorta shows no aneurysm. No retroperitoneal adenopathy or mesenteric abnormalities are seen. Appendix is seen which is normal in size. No pelvic mass or adenopathy is seen. No free fluid or inflammatory change is seen. Bone window settings were reviewed which appear within normal limits for the patient's age. Small fat-containing umbilical hernia is noted. Impression: 1. No renal calculi, ureteral dilatation or ureteral stone is seen. 2. Slightly increasing size of a cyst within the upper left kidney when compared to prior exam. 3. Fatty infiltration within the liver. 4. No additional abnormality is appreciated on noncontrast CT study of the abdomen and pelvis. Diagnostic code #2
== END 2019-01-15 11:35 | disposition home or self-care (01) ==
LOC: JD.ED 08:11
DX: R10.32 Left lower quadrant pain (principal)
CPT/HCPCS: 74176; 81001; 96374; 96375; 99284; J1170; J2405; 99283